=== PATIENT | female | born 1995 | race Two or more races ===

== ENCOUNTER 2017-01-24 14:18 | Emergency (ER) | payer SELFPAY ==
[~2017-01-24] VITALS: Ht 154.9 cm; Wt 54.4 kg
[2017-01-24 15:10] VITALS: BP 116/78
[2017-01-24] MEDS ORDERED: FAMO20TA5 PO (15:22)
[2017-01-24] MEDS ORDERED: DIPH25CA58 PO (15:22)
[2017-01-24] MEDS ORDERED: PRED50TA PO (15:22)
--- NOTE | 2017-01-24 15:22 | PHYS DOC ---
Past Medical History Past Medical History: No Pertinent History Past Surgical History: Alcohol Use: None Drug Use: None Adult General Chief Complaint Chief Complaint: SKIN RASH/ABSCESS HPI HPI Patient is a 21 year old female who presents with a rash on her face that began yesterday. Patient denies any new contacts or soles for this rash. Denies any difficulty breathing or swallowing throat or tongue swelling. Review of Systems Review of Systems Constitutional: Denies fever or chills [] Eyes: Denies change in visual acuity, redness, or eye pain [] HENT: Denies nasal congestion or sore throat [] Respiratory: Denies cough or shortness of breath [] Cardiovascular: No additional information not addressed in HPI [] GI: Denies abdominal pain, nausea, vomiting, bloody stools or diarrhea [] : Denies dysuria or hematuria [] Musculoskeletal: Denies back pain or joint pain [] Integument: rash on face Neurologic: Denies headache, focal weakness or sensory changes [] All other systems were reviewed and found to be within normal limits, except as documented in this note. Allergies Allergies Allergies Coded Allergies Type Severity Reaction Last Updated Verified No Known Drug Allergies 11/05/13 No Physical Exam Physical Exam Constitutional: Well developed, well nourished, no acute distress, non-toxic appearance. [] HENT: Normocephalic, atraumatic, bilateral external ears normal, oropharynx moist, no oral exudates, nose normal. Airway is open. Eyes: PERRLA, EOMI, conjunctiva normal, no discharge. [] Neck: Normal range of motion, no tenderness, supple, no stridor. [] Cardiovascular:Heart rate regular rhythm, no murmur [] Lungs & Thorax: Bilateral breath sounds clear to auscultation [] Abdomen: Bowel sounds normal, soft, no tenderness, no masses, no pulsatile masses. [] Skin: Warm, dry, face with mild amount of erythema is papular rash, Back: No tenderness, no CVA tenderness. [] Extremities: No tenderness, no cyanosis, no clubbing, ROM intact, no edema. [] Neurologic: Alert and oriented X 3, normal motor function, normal sensory function, no focal deficits noted. [] Psychologic: Affect normal, judgement normal, mood normal. [] Current Patient Data Vital Signs Vital Signs Date Time Temp Pulse Resp B/P (MAP) Pulse Ox O2 Delivery O2 Flow Rate FiO2 01/24/17 15:10 98.0 77 18 116/78 (91) 98 Room Air 98.0 EKG EKG [] Radiology/Procedures Radiology/Procedures [] Course & Med Decision Making Course & Med Decision Making Pertinent Labs and Imaging studies reviewed. (See chart for details) Patient has contact dermatitis rash on her face from unknown cause. Discharged with prednisone and Benadryl and famotidine. Provided return precautions. Follow -up with PCP in 1-2 weeks. Dragon Disclaimer Dragon Disclaimer This electronic medical record was generated, in whole or in part, using a voice recognition dictation system. Departure Departure Impression: Primary Impression: Contact dermatitis Disposition: HOME, SELF-CARE Condition: STABLE Referrals: NO PCP (PCP) HARRISON ROOT MD follow up in one week Patient Instructions: Contact Dermatitis, [id number] Additional Instructions: You were seen with contact dermatitis rash on your face from unknown cause. We put you on medications. Take them as prescribed. Follow up with your doctor in one to two weeks Scripts Diphenhydramine Hcl (BENADRYL) 25 Mg Capsule 1 CAP PO Q4HRS W/A, #30 CAP 0 Refills Prov: TIFFANIE ORDONEZ APRN 01/24/17 Famotidine (FAMOTIDINE) 20 Mg Tablet 20 MG PO DAILY, #14 TAB Prov: TIFFANIE ORDONEZ APRN 01/24/17 Prednisone (PREDNISONE) 50 Mg Tablet 1 TAB PO DAILY, #5 TAB Prov: TIFFANIE ORDONEZ APRN 01/24/17 Problem Qualifiers Primary Impression: Contact dermatitis Contact dermatitis type: unspecified Contact dermatitis trigger: unspecified trigger Qualified Codes: L25.9 - Unspecified contact dermatitis, unspecified cause TIFFANIE ORDONEZ APRN Jan 24, 2017 15:22
== END 2017-01-24 15:25 | disposition home or self-care (01) ==
LOC: ER 14:18
DX: L25.9 Unspecified contact dermatitis, unspecified cause (principal)
CPT/HCPCS: 99283